=== PATIENT | female | born 1985 | race Caucasian/White ===

== ENCOUNTER 2020-11-20 11:30 | Outpatient (NON) | payer BC, SELFPAY ==
[2020-11-20 22:00] LABS: SARS-CoV-2 RNA PCR Positive
== END 2020-11-20 11:31 ==
LOC: ANHCOVIDDT 11:32
PROVIDERS: PCP Family Medicine; Visit Provider Family Medicine
DX: U07.1 COVID-19 (principal)
CPT/HCPCS: 87635; C9803; U0003

== ENCOUNTER 2022-09-23 11:26 | Outpatient (CLI) | payer BC, SELFPAY ==
[2022-09-23 12:28] LABS: Basophils Absolute Auto 0.1 K/mm3 (0.0-0.1); Basophils Percent Auto 0.9 % (0.2-1.2); Eosinophils Absolute Auto 0.2 K/mm3 (0-0.3); Eosinophils Percent Auto 3.3 % (0-4.4); Hematocrit 36.2 % (37.0-47.0); Hemoglobin 11.8 g/dL (12.0-15.0); Immature Granulocyte Absolute 0.01 K/mm3 (0.00-0.031); Immature Granulocyte Percent A 0.2 % (0-0.5); Lymphocytes Percent Auto 28.5 % (18.3-44.2); Mean Corpuscular HGB Conc 32.6 g/dl (32-36); Mean Corpuscular Hemoglobin 30.2 pg (26-34); Mean Corpuscular Volume 92.6 fl (80-100); Mean Platelet Volume 10.8 fl (7.4-10.4); Monocytes Absolute Auto 0.4 K/mm3 (0.1-0.6); Monocytes Percent Auto 6.5 % (2.6-8.5); Neutrophils Percent Auto 60.6 % (45.5-73.1); Platelet Count Result 248 k/mm3 (150-375); Red Blood Count 3.91 M/mm3 (4.2-5.4); Red Cell Distribution Width 13.9 % (11.5-14.5); White Blood Count 6.7 K/mm3 (4.5-10.0)
== END 2022-09-23 11:27 | disposition home or self-care (01) ==
LOC: ANHSURGERY 11:36
PROVIDERS: PCP Family Medicine; Visit Provider Obstetrics & Gynecology
DX: N92.6 Irregular menstruation, unspecified (principal); Z01.818 Encounter for other preprocedural examination
CPT/HCPCS: 36415; 85025; 86850; 86900; 86901

== ENCOUNTER 2022-09-27 00:20 | Day surgery (SDC) | payer BC, SELFPAY ==
[2022-09-17 14:20] VITALS: BMI 22.6
--- NOTE | 2022-09-17 14:30 | SUR.PREOP ---
Report to the Outpatient Waiting Room, entrance under the green pavilion located off [facility], at time _0930 on date _09/27/22 . Planned Procedure Time: _1130 . Time changes happen often and if your time is changed the preop area will call you the afternoon before. - You and your visitor will be asked to self-screen and do not enter if you have any COVID symptoms. - We encourage only one visitor and NO visitors under age 16 are allowed at this time. Your visitor will receive communication by the phone number that is given day of service. - The patient visitor is requested to social distance or may leave the building when not with patient due to restrictions. - A mask is required within the hospital. Patients may have clear liquids (water, carbonated beverages, clear teas, apple juice) until 3 hours prior to surgery with a maximum of 20 ounces. - No food from midnight until time of surgery - Infants may have breast milk until 4 hours before surgery, formula 6 hours prior to surgery. - Children will be allowed to drink immediately following surgery. If applicable, please bring a bottle or sippy cup to assist with drinking. Juice, water, soda, and popsicles are readily available. For infants on formula, please bring formula the day of surgery. Pacifiers are allowed. Take the following medications with a SIP of water the morning of surgery: ___n/a Medications to discontinue per physician ____n/a Date to take last dose_n/a Please no make-up, nail kyrgyz, hairspray, perfume, deodorant, or body powder the day of surgery. No jewelry (including any body piercings) or valuables the day of surgery, leave them at home. Please take a shower or bath the night before, or the morning of, surgery with an antibacterial soap. Wear comfortable, loose fitting clothing. Children are encouraged to wear pajamas. - Jewelry must be removed prior to entering the operating room. Rings and piercings that are not removed may be cut off. - The hospital will not accept responsibility for valuables. - Please leave all valuables, including medications, at home the day of surgery. If you are going home after surgery, a licensed electric screw driver operator must drive you home. - NO public transportation without another adult. - We recommend that an adult stay with you for 24 hours following discharge. - We also recommend that you do not drive, make important decision, drink alcoholic beverages, or take any drugs that were not prescribed by your health care provider for at least 24 hours after your discharge time. For Pediatric surgeries, we recommend two adults accompany the child home. Follow any additional instructions given to you from your surgeon. If you or anyone in your household have experienced Covid symptoms in the past week, please notify your surgeon or the nurse liaison at the phone number below for possible testing. Telephone instructions given to jcarlos rios____and asked if any additional questions and then verbalized understanding. Patient advised to call surgeon office or pre surgery nurse liaison [phone] if any additional questions.
--- NOTE | 2022-09-25 11:31 | PM.IMHP ---
H&P: HPI History of Present Illness Date/Time: 09/25/22 11:31 Chief Complaint: Pelvic pain and postcoital bleeding refractory to medical therapy with enlarged uterus Narrative: Is a 37-year-old multiparous patient admitted for robotic hysterectomy and bilateral salpingectomy secondary to chronic pelvic pain postcoital bleeding irregular bleeding enlarged uterus. She had pain discomfort and bleeding for quite some time. Risks and benefits reviewed including but not exclusive of , aspiration pneumonia, bleeding, transfusion, perforation of bowel, bladder, ureters, or other internal organs with need for open laparotomy. She received the ACOG handout entitled hysterectomy as well as de Dotty handout. She had all questions answered and asked to proceed PMFSH Surgical History Surgical History [place] teeth extracted Social History Social History Smoking status: Never smoker Alcohol intake: never Substance use: never Spiritual care concerns: No Has the Lack of Transportation Kept You From Medical Appointments or From Getting Medications?: No Within the Past 12 Months, Were You Worried Whether Your Food Would Run Out Before You Got Money to Buy More?: Never True What is Your Housing Situation Today?: I Have Housing Are You Worried That in the Next 2 Months, You May Not Have Your Own Housing to Live In?: No Do You Have Trouble Paying Your Heating Or Electricity Bill?: No Do You Have Trouble Paying For Medicines?: No Are You Currently Unemployed and Looking for Work?: No Highest Level of Education Completed: Bachelor's Degree Do You Have Trouble With Childcare or the Care of a Family Member?: No Meds Home Medications and Allergies Home Medications Medication Instructions Recorded Confirmed Type norgestimate-ethinyl estradiol 1 tablet PO DAILY 11/11/09/24/22 History 0.18 mg/0.215mg/0.25mg-35 mcg(28)tablet (Tri-Estarylla) Allergies Allergy/AdvReac Type Severity Reaction Status Date / Time cefaclor Allergy Mild Skin Verified 09/24/22 13:04 Reaction Penicillins Allergy Mild Skin Verified 09/24/22 13:04 Reaction PERTUSSIS IMMUNE GLOBULIN Allergy Intermediate SWELLING Uncoded 09/24/22 13:04 Exam Const: General: cooperative, healthy appearing and comfortable Nutritional Appearance: average body habitus Orientation/consciousness: oriented to person, oriented to place and oriented to time HENMT: Head: normal to inspection Chest: Chest palpation & inspection: normal inspection of the chest Resp: Effort & Inspection: normal respiratory effort Cardio: Rate: regular rate Rhythm: regular rhythm Heart sounds: S1 normal heart sound present and S2 normal heart sound present GI: Inspection: normal to inspection Auscultation: normal bowel sounds : Speculum Exam - Vagina: normal appearance of the vagina and vaginal bleeding Speculum Exam - Cervix: normal appearance of the cervix Bimanual exam- vagina & uterus: enlarged Bimanual Exam- Adnexa, other: normal adnexae Assessment and Plan Assessment and plan (1) Enlarged uterus: Code(s): N85.2 - Hypertrophy of uterus Status: Acute (2) Postcoital bleeding: Code(s): N93.0 - Postcoital and contact bleeding Status: Acute (3) Pelvic pain: Code(s): R10.2 - Pelvic and perineal pain Status: Acute Plan Robotic total vaginal hysterectomy bilateral salpingectomy
--- NOTE | 2022-09-26 14:46 | WPDANESEPPF ---
Anes - Initial Pre Proc Eval Procedure: Operation Date: 09/27/22 11:30 Proposed Procedures p Robotic Assisted Total Vaginal Hysterectomy, Bilateral Salpingectomy - Deven Larose MD Date/Time: 09/26/22 14:46 Surgeon: Deven Larose MD Pre Op Diagnosis: pelvic pain, irreg bleeding, post coital bleed, Patient Data Age: 37 Gender: F Height: 1.68 m Weight: 63.63 kg Allergies Allergy/AdvReac Type Severity Reaction Status Date / Time cefaclor Allergy Mild Skin Verified 09/27/22 09:29 Reaction Penicillins Allergy Mild Skin Verified 09/27/22 09:29 Reaction PERTUSSIS IMMUNE GLOBULIN Allergy Intermediate SWELLING Uncoded 09/27/22 09:29 Home Medications Medication Instructions Recorded Confirmed Type norgestimate-ethinyl estradiol 1 tablet PO DAILY 11/11/19 09/27/22 History 0.18 mg/0.215mg/0.25mg-35 mcg(28)tablet (Tri-Estarylla) hydrocodone 5 mg-acetaminophen 325 1 tablet PO Q4H PRN pain #30 tabs 09/27/22 Rx mg tablet Patient hx anesthesia problems: none Family hx anesthesia problems: none Results Review: All pre-operative results and documents have been reviewed as part of the pre-operative evaluation. [facility] Past Medical History Medical History (Updated 09/26/22 @ 14:47 by Maxim Zhao MD) Enlarged uterus Pelvic pain Surgical History Surgical History [place] teeth extracted Social History Social History Smoking status: Never smoker Alcohol intake: never Substance use: never Has the Lack of Transportation Kept You From Medical Appointments or From Getting Medications?: No Within the Past 12 Months, Were You Worried Whether Your Food Would Run Out Before You Got Money to Buy More?: Never True What is Your Housing Situation Today?: I Have Housing Are You Worried That in the Next 2 Months, You May Not Have Your Own Housing to Live In?: No Do You Have Trouble Paying Your Heating Or Electricity Bill?: No Do You Have Trouble Paying For Medicines?: No Are You Currently Unemployed and Looking for Work?: No Highest Level of Education Completed: Bachelor's Degree Do You Have Trouble With Childcare or the Care of a Family Member?: No Living arrangements: with family Spiritual care concerns: No Anes - Eval Final PreProcedure Day of Procedure 09/26/22 14:46 Patient weight: normal Heart: regular rate and rhythm Lungs: clear to auscultation and normal air movement Airway: Mallampati scale class II Neurological: alert and oriented Last oral intake: >/= 8 hours ASA classification: II Emergent: no Anesthetic plan: proceed Anesthesia type and monitoring: general ETT Results Review: All pre-operative results and documents have been reviewed as part of the pre-operative evaluation. Informed Consent: The patient's anesthetic plan and its attendant risks and benefits were discussed with the patient/family/POA. Questions were solicited and answers provided to the satisfaction of the patient/family/POA.
[2022-09-27] VITALS (12 sets, daily range): BP systolic 97–126; BP diastolic 62–73; PULSE 65–98; RESP 10–20; TEMP 36.2–36.9; O2SAT 98–100
--- NOTE | 2022-09-27 06:16 | WPDHPUPDATE1 ---
History and Physical Update Update Date/Time: 09/27/22 06:16 History and Physical has been reviewed, including an updated exam of the patient. There are NO changes in the patient's condition. Risks, benefits, and alternatives have been discussed and questions answered. Patient agrees to proceed with procedure.
[2022-09-27] MEDS: ACETAMINOPHEN 500 MG TABLET 1000 MG PO (09:38)
[2022-09-27] MEDS: LACTATED RINGERS 1,000 ML 30 ML IV CONT ×2 (10:05→11:53)
[2022-09-27] MEDS: KETOROLAC 15 MG/ML VIAL (*BKC) IV PUSH (10:07)
[2022-09-27] MEDS: SCOPOLAMINE 1.5 MG PATCH TRANSDERM (10:24)
[2022-09-27] MEDS: ceFAZolin 2 GM/D5W 50 ML 2 GM/50 ML BAG IVPB (10:36)
--- NOTE | 2022-09-27 11:49 | W.PM.PROC2 ---
Procedure Note - Detailed Date of Procedure 09/27/22 Pre-op Diagnosis pelvic pain, irreg bleeding, post coital bleed, Post-op Diagnosis Same Procedure Performed Robotic total vaginal hysterectomy and bilateral salpingectomies Surgeon Deven Larose MD Anesthesia General Indications 37-year-old female with bleeding pain Findings enlarged uterus. Normal-appearing tubes and ovaries Description of Procedure patient was prepped draped in normal sterile fashion placed in dorsal lithotomy position. Under excellent general trach anesthesia weighted speculum was placed in posterior fornix vagina. Anterior lip of the cervix grasped with single-tooth tenaculum and the uterus sounded to 10cm. Serial dilatation with fragmented dilators performed followed by passage of the 10. FILI and the 3. Cold cup. Sixteen [place] catheter was placed in the bladder. The weighted speculum was removed. The gloves were changed A supraumbilical incision made. Veress needle passed in the abdomen. Abdomen filled with CO2 gas [id number]. The 8mm trocar advanced in the abdomen and the downside visualized with no injury seen. Patient placed in Trendelenburg and right left and right lateral quadrant incisions made and 8mm trocars advanced under direct visualization. Right upper quadrant incision made the 10mm trocar advanced under direct visualization assuring. The robot was docked. Attention was turned to the correctional counselor. The left round ligament was grasped, burned, cut. Anteriorly a bladder flap was formed by sharply dissecting the peritoneum and dissecting this 2 and pushed the bladder caudally away from the cervix and uterus to the opposite round ligament which was clamped, burned, cut. Next left fallopian tube was sharply dissected off the ovarian complex and left attached to the uterine origin. The right fallopian tube was removed dissected away from the right ovary and left attached to the uterine origin. Next the left utero-ovarian ligament was skeletonized to conserve the left ovary this was clamped, burned, cut and brought to the level of previously cut round ligament. In like fashion the the utero-ovarian ligament on the right was skeletonized to conserve the right ovary. This was clamped, burned, cut and brought to level of the previously cut round ligament. The cardinal broad ligaments on the left were then serially skeletonized clamping burning cutting and hugging the cervix and uterus and to the uterine vessels could be seen the left. These were large and tortuous and individually clamped, burned, cut. The cardinal broad ligaments on the right were serially skeletonized clamping burning cutting and hugging the cervix and uterus until the uterine vessels could be seen on the right. These were individually clamped, burned, cut. At that point blanching of the uterus was noted. A colpotomy incision made cervix uterus and tubes removed through the vagina. The vagina was then closed with continuous running 0V lock from lateral edge to lateral edge back to the midline. Irrigation undertaken until clear with excellent hemostasis. The raw areas were sprinkled with [place] term. The robot was undocked. The gas removed from the abdomen and the trocars withdrawn. The incisions closed with 4-0 Monocryl and glue. The instruments were then removed from the vagina. The patient was awakened and went to recovery in satisfactory condition. All sponge, needle, instrument counts were correct. There were no immediate complications noted Estimated Blood Loss 25 Drains No Packing No Pathology Yes Complications No immediate complications Condition Stable Disposition PACU
[2022-09-27] MEDS: fentaNYL CITRATE INJ (*CRX) 100 MCG/2 ML VIAL 25 MCG IV PUSH ×4 (12:54→13:04)
--- NOTE | 2022-09-27 13:27 | ADMGEN ---
This patient, Shayy Perez, was admitted to OB 2nd Floor Room 287-00. Patient/family oriented to hospital policies and general routines including ID bracelet, bed and alarms, visiting hours, pain management, procedures, bathroom and other care routines, personal items, smoking policy, room service/diet, and visiting hours. Information on how to activate the Rapid Response Team has been discussed. Patient/Family are encouraged to report perceived risks to care and to ask questions if they do not understand what they are told or what they should do.
[2022-09-27] MEDS: DEXTROSE 5%/LACTATED RINGERS 1,000 ML 125 ML IV CONT (13:50)
[2022-09-27] MEDS: KETOROLAC 30 MG/ML VIAL (*BKC) IV PUSH (15:37)
[2022-09-27] MEDS: HYDROcodone/acetaminophen (*CRX) 5-325 MG TABLET 1 TAB PO (17:00)
[2022-09-27] MEDS: DOCUSATE SODIUM 100 MG CAPSULE PO (17:00)
[2022-09-28] MEDS: HYDROcodone/acetaminophen (*CRX) 5-325 MG TABLET 1 TAB PO ×3 (01:02→10:49)
[2022-09-28] MEDS: IBUPROFEN 600 MG TABLET PO ×2 (01:02→07:15)
[2022-09-28 04:45] VITALS: BP 116/62; PULSE 71; RESP 16; TEMP 36.4
[2022-09-28 05:30] LABS: Basophils Percent Auto 0.2 % (0.2-1.2); Eosinophils Percent Auto 0.1 % (0-4.4); Hematocrit 31.4 % (37.0-47.0); Hemoglobin 10.4 g/dL (12.0-15.0); Immature Granulocyte Absolute 0.05 K/mm3 (0.00-0.031); Immature Granulocyte Percent A 0.3 % (0-0.5); Lymphocytes Absolute Auto 1.52 K/mm3 (0.9-3.2); Lymphocytes Percent Auto 10.4 % (18.3-44.2); Mean Corpuscular HGB Conc 33.1 g/dl (32-36); Mean Corpuscular Hemoglobin 30.8 pg (26-34); Mean Corpuscular Volume 92.9 fl (80-100); Mean Platelet Volume 11.3 fl (7.4-10.4); Monocytes Absolute Auto 0.9 K/mm3 (0.1-0.6); Monocytes Percent Auto 6.2 % (2.6-8.5); Neutrophils Absolute Auto 12.1 K/mm3 (1.3-6.7); Neutrophils Percent Auto 82.8 % (45.5-73.1); Platelet Count Result 186 k/mm3 (150-375); Red Blood Count 3.38 M/mm3 (4.2-5.4); Red Cell Distribution Width 13.8 % (11.5-14.5); White Blood Count 14.6 K/mm3 (4.5-10.0)
--- NOTE | 2022-09-28 06:24 | P.DS_ITS ---
DS: Admitting Diagnosis Discharge Date 09/28/2022 Admitting Diagnosis recurrent high-grade dysplasia and bleeding DS: Discharge Diagnosis Discharge Diagnosis (1) Pelvic pain: Code(s): R10.2 - Pelvic and perineal pain Status: Acute (2) Enlarged uterus: Code(s): N85.2 - Hypertrophy of uterus Status: Acute (3) Postcoital bleeding: Code(s): N93.0 - Postcoital and contact bleeding Status: Acute DS: Summary Hospital Course Reason for hospitalization: patient was admitted for robotic hysterectomy bilateral salpingectomy Hospital Course: patient underwent a robotic total vaginal hysterectomy and bilateral salpingectomies. Her hospital course unremarkable. She remained afebrile. She was up, ambulating, voiding without difficulty, eating regular diet. She was without complaints routine discharge instructions were given Time Spent with Patient Time attestation: Total time spent providing and/or coordinating discharge services: DS: Data Data Completed and Pending Pending studies at discharge: Pending at discharge 09/27/22 11:00 Surgical [PTH] Routine Labs on day of discharge: Labs from last 24 hours 09/28/22 04:46 WBC 14.6 H RBC 3.38 L Hgb 10.4 L Hct 31.4 L MCV 92.9 MCH 30.8 MCHC 33.1 RDW 13.8 Plt Count 186 MPV 11.3 H Immature Gran % (Auto) 0.3 Neut % (Auto) 82.8 H Lymph % (Auto) 10.4 L [place] % (Auto) 6.2 Eos % (Auto) 0.1 Baso % (Auto) 0.2 Lymph # (Auto) 1.52 [place] # (Auto) 0.9 H Eos # (Auto) 0.0 Baso # (Auto) 0.0 Abs Immat Gran (auto) 0.05 H Absolute Neuts (auto) 12.1 H Absolute Nucleated RBC 0.0 Nucleated RBC % 0.0 Discharge Plan Discharge Patient Disposition: Home, Self-Care Discharge Instructions: Remove the Scopolamine patch that was placed behind your ear in 72 hours or less. Wash your hands after touching. Stand Alone Forms: General Discharge Instructions Follow-up/Referrals: Deven Cordero MD [Physician] - Discharge Medications: New hydrocodone-acetaminophen 5-325 mg tablet 1 tablet PO Q4H PRN (Reason: pain) Qty: 30 0RF Continued norgestimate-ethinyl estradiol [Tri-Estarylla] 0.18/0.215/0.25 mg-35 mcg (28) tablet 1 tablet PO DAILY
--- NOTE | 2022-09-28 06:27 | PM.GYNPNOP ---
PRINTED CIRCUIT BOARD PANELS PLATER - A/P Postoperative Procedures: Procedures Operation Date: 09/27/22 11:30 Actual Procedure Side Surgeon p Robotic Assisted Total Vaginal Hysterectomy, Bilateral Salpingectomy Bilateral Deven Larose MD Postoperative day: 1 Postoperative status: doing well Postoperative plan: routine post-op care, advance diet and discharge Time Spent With Patient Time: Total time spent is greater than 50% in coordination of care (as documented) at patient's floor/unit and/or counseling patient: Time with patient: less than 15 minutes PRINTED CIRCUIT [employer]ARD PANELS PLATER- PN:Subj Post-Op Subjective Date/time seen: 09/28/22 06:27 Subjective: patient has no complaints, patient desires discharge, pain is well controlled and patient is tolerating oral intake Exam Const: General: cooperative, healthy appearing, comfortable and well groomed Nutritional Appearance: average body habitus Orientation/consciousness: oriented to person, oriented to place and oriented to time HENMT: Head: normal to inspection Resp: Effort & Inspection: normal respiratory effort GI: Inspection: normal to inspection and incision ( once were clean dry and intact) PRINTED CIRCUIT BOARD PANELS PLATER - PN: Obj Data Vital Signs Vital Signs: Vital Signs - 24 hr 09/27/22 09:30 09/27/22 11:53 09/27/22 12:05 Temperature 97.6 F 97.1 F L Pulse Rate 82 84 84 Respiratory Rate 20 10 L 12 Blood Pressure 101/72 97/62 L 112/65 Pulse Oximetry 100 100 100 Oxygen Delivery Room Air Simple Face Mask Simple Face Mask Oxygen Flow Rate 6 6 09/27/22 12:12 09/27/22 12:20 09/27/22 12:35 Temperature Pulse Rate 76 65 Respiratory Rate 10 L 16 Blood Pressure 110/71 115/72 Pulse Oximetry 100 100 100 Oxygen Delivery Room Air Room Air Room Air Oxygen Flow Rate 09/27/22 12:55 09/27/22 13:10 09/27/22 13:20 Temperature Pulse Rate 73 69 98 Respiratory Rate 14 14 16 Blood Pressure 126/73 112/65 112/65 Pulse Oximetry 98 98 100 Oxygen Delivery Room Air Room Air Room Air Oxygen Flow Rate 09/27/22 13:40 09/27/22 13:55 09/27/22 17:00 Temperature 97.6 F 98.5 F Pulse Rate 67 79 Respiratory Rate 16 16 Blood Pressure 118/72 100/71 Pulse Oximetry 98 100 Oxygen Delivery Room Air Oxygen Flow Rate 09/27/22 17:00 09/27/22 19:00 09/28/22 04:45 Temperature 97.4 F L 97.6 F Pulse Rate 68 71 Respiratory Rate 16 16 Blood Pressure 119/67 116/62 Pulse Oximetry Oxygen Delivery Room Air Oxygen Flow Rate Intake/Output Intake/Output: Intake & Output 09/25/22 09/26/22 09/27/22 09/28/22 23:59 23:59 23:59 23:59 Intake Total 1450 Output Total 2610 Balance -1160 Meds/Results Medications: Active Medications Generic Name Dose Route Start Last Admin Trade Name Freq PRN Reason Stop Dose Admin Hydrocodone Bitart/Acetaminophen 1 tab 09/27/22 13:23 09/28/22 01:02 Hydrocodone/Acetaminophen (*Crx) 5-325 Mg Tablet PO 1 tab Q3H PRN Administration Pain Rated 5 or Less Hydrocodone Bitart/Acetaminophen 1 tab 09/27/22 13:23 Hydrocodone/Acetaminophen (*Crx) 10-325 Mg Tablet PO Q3H PRN Pain Rated 6 or Greater Docusate Sodium 100 mg 09/27/22 17:00 09/27/22 17:00 Docusate Sodium 100 Mg Capsule PO 100 mg BID KEENAN Administration Enoxaparin Sodium 40 mg 09/28/22 09:00 Enoxaparin 40 Mg/0.4 Ml Syringe SUB-Q DAILY KEENAN Ibuprofen 600 mg 09/27/22 13:23 09/28/22 01:02 Ibuprofen 600 Mg Tablet PO 600 mg Q6H PRN Administration Cramping Ketorolac Tromethamine 30 mg 09/27/22 13:23 09/27/22 15:37 Ketorolac 30 Mg/Ml Vial (*Bkc) IV PUSH 10/02/22 13:22 30 mg Q6H PRN Administration Pain Rated 4-6 Naloxone HCl 0.1 mg 09/27/22 13:23 Naloxone Hcl 0.4 Mg/Ml Vial IV PUSH Q2M PRN Respiratory rate less than 10 Ondansetron HCl 4 mg 09/27/22 13:23 Ondansetron Inj 4 Mg/2 Ml Vial IV PUSH Q6H PRN Nausea And Vomiting Simethicone 80 mg 09/27/22 13:23 Simethicone 80 Mg Tab.Chew PO Q2H
[2022-09-28 07:15] VITALS: BP 105/62; PULSE 64; RESP 16; TEMP 37; O2SAT 98
[2022-09-28] MEDS: ENOXAPARIN 40 MG/0.4 ML SYRINGE SUB-Q (09:07)
[2022-09-28] MEDS: DOCUSATE SODIUM 100 MG CAPSULE PO (09:07)
== END 2022-09-28 10:52 | disposition home or self-care (01) ==
LOC: ANHSURGERY 10:21 → ANHOB2 13:24
PROVIDERS: PCP Family Medicine; Visit Provider Obstetrics & Gynecology
PROC: (CPT 58552; principal; 2022-09-27 11:30)
DX: N93.9 Abnormal uterine and vaginal bleeding, unspecified (principal); R10.2 Pelvic and perineal pain; N93.0 Postcoital and contact bleeding; N72 Inflammatory disease of cervix uteri; N85.2 Hypertrophy of uterus
CPT/HCPCS: 58552; S2900; 36415; 85025; 88307; 99199; A9270; J0690; J1100; J1650; J1885; J2250; J2405; J2704; J2710; J3010; J7030; J7120; J7121

== ENCOUNTER 2022-11-08 08:43 | Outpatient (CLI) | payer BC, SELFPAY ==
[2022-11-08 19:36] LABS: Alanine Aminotransferase 19 U/L (6-35); Albumin Level 4.4 g/dL (3.5-5.1); Alkaline Phosphatase 54 U/L (38-126); Anion Gap 7 mmol/L (8-16); Aspartate Amino Transferase 27 U/L (14-36); Bilirubin,Total 1.2 mg/dL (0.2-1.3); Blood Urea Nitrogen 14 mg/dL (7-17); Calcium 8.6 mg/dL (8.4-10.2); Carbon Dioxide 28 mmol/L (22-30); Chloride 102 mmol/L (98-107); Cholesterol 182 mg/dL (0-200); Estimated Glomerular Filt Rate > 60; Glucose 90 mg/dL (65-110); HDL Direct 57 mg/dL; Potassium 4.3 mmol/L (3.4-5.0); Sodium 137 mmol/L (137-145); Triglycerides 72 mg/dL (<150)
[2022-11-08 19:47] LABS: LDL Cholesterol Direct 92 mg/dL
== END 2022-11-08 08:44 | disposition home or self-care (01) ==
LOC: ANHGOSHLAB 08:45
PROVIDERS: PCP Family Medicine; Visit Provider Family Medicine
DX: Z00.00 Encounter for general adult medical examination without abnormal findings (principal); Z13.220 Encounter for screening for lipoid disorders; Z79.899 Other long term (current) drug therapy
CPT/HCPCS: 36415; 80053; 80061; 84443

== ENCOUNTER 2023-09-07 10:24 | Emergency (ER) | payer BC, SELFPAY ==
--- NOTE | ~2023-09-07 | XR_ITS ---
XR ankle RT min 3V DATE: 09/07/2023 10:45 INDICATION: Right ankle pain and swelling after running yesterday TECHNIQUE: 4 views of right ankle COMPARISON: None FINDINGS: Mild lateral soft tissue swelling. No fracture or dislocation of the ankle or disruption of the ankle mortise. No periosteal reaction or bone destruction is detected. IMPRESSION: Mild lateral soft tissue swelling; no fracture or dislocation Reviewed, dictated and finalized at location A.
[2023-09-07 10:28] VITALS: BP 126/81; PULSE 84; RESP 16; TEMP 36.6; O2SAT 100
--- NOTE | 2023-09-07 11:49 | ED.GENADULT ---
HPI - General Adult General Chief complaint: Extremity Injury, Lower Stated complaint: Right ankle pain Time Seen by Provider: 09/07/23 10:53 History of Present Illness HPI narrative: Shayy Perez is a 38 y/o female who present today with reports of noticing some pain to her right lateral lower leg when she was walking yesterday before her run, she then proceeded to run and felt that it was ok. Later last night she started to have more pain to her ankle worse with ambulation, although she can stand on her foot without pain as long as she does not move. She denies any known trauma, reports she might of sprained it years ago but not recently. Related Data Home Medications Medication Instructions Recorded Confirmed No Home Medications 09/03/23 09/03/23 Allergies Allergy/AdvReac Type Severity Reaction Status Date / Time cefaclor Allergy Mild Skin Verified 09/03/23 14:39 Reaction Penicillins Allergy Mild Skin Verified 09/03/23 14:39 Reaction PERTUSSIS IMMUNE GLOBULIN Allergy Intermediate SWELLING Uncoded 09/03/23 14:39 Review of Systems Review of Systems: CONSTITUTIONAL: Denies fever, chills, or sweats. EYES: Denies visual changes, redness, or discharge. ENT: Denies rhinorrhea, congestion, sore throat, or otalgia. CARDIOVASCULAR: Denies chest pain, palpitations, or edema. RESPIRATORY: Denies cough or dyspnea. GASTROINTESTINAL: Denies abdominal pain, nausea, vomiting, or diarrhea. GENITOURINARY: Denies dysuria or hematuria. SKIN: Denies rash or itching. MUSCULOSKELETAL: Denies back pain, complains of pain to lateral aspect of the right ankle denies myalgia. NEUROLOGIC: Denies headache, numbness, dizziness, or weakness. PSYCHIATRIC: Denies anxiety or depression. [facility] Past Medical History Medical History Enlarged uterus Pelvic pain Surgical History Surgical History H/O: hysterectomy [place] teeth extracted Social History Social History Smoking status: Never smoker Alcohol intake: never Substance use: never Lack of Transportation: No Lack of Food: Never True Current Housing: I Have Housing Concerned About Future Housing: No Difficulty Paying Gas/Electric Bills: No Difficulty Paying for Meds: No Currently Unemployed: No Education: Bachelor's Degree Difficulty w/ Childcare or Family Care: No Living arrangements: with family Spiritual care concerns: No Exam Narrative: GENERAL: Well-appearing, well-nourished, and in no acute distress. HEAD: Normocephalic, atraumatic. EYES: PERRLA and EOMI. ENT: Nares clear, no rhinorrhea or epistaxis. Mucous membranes moist. Oropharynx without tonsillar hypertrophy exudate or other lesions. NECK: Supple. No adenopathy or masses. No carotid bruits or JVD CHEST: Clear to auscultation. No respiratory distress. No wheezes rales or rhonchi HEART: Regular rate and rhythm. No murmur heard. Normal peripheral pulses. ABDOMEN: Soft, nontender, nondistended, normal active bowel sounds. EXTREMITIES: Normal range of motion. Pain reproducible with palpation to right ankle, slight swelling noted to ankle SKIN: Warm, dry, no rash. NEURO: No focal deficits. Alert and oriented x3. PSYCH: Normal mood and affect. Course Vital Signs Vital signs: Vital Signs Temperature 36.6 C 09/07/23 10:28 Pulse Rate 84 09/07/23 10:28 Respiratory Rate 16 09/07/23 10:28 Blood Pressure 126/81 09/07/23 10:28 Pulse Oximetry 100 09/07/23 10:28 Oxygen Delivery Room Air 09/07/23 10:28 Temperature 36.6 C 09/07/23 10:28 Pulse Rate 73 09/07/23 12:32 Respiratory Rate 16 09/07/23 12:32 Blood Pressure 122/79 09/07/23 12:32 Pulse Oximetry 100 09/07/23 12:32 Oxygen Delivery Room Air 09/07/23 10:28 Medical Decision Making MDM Narrative Medical decision making
[2023-09-07 12:32] VITALS: BP 122/79; PULSE 73; RESP 16; O2SAT 100
== END 2023-09-07 12:46 | disposition home or self-care (01) ==
PROVIDERS: Emergency Provider Nurse Practitioner Family; PCP Family Medicine
DX: S93.401A Sprain of unspecified ligament of right ankle, initial encounter (principal); Z90.710 Acquired absence of both cervix and uterus; X58.XXXA Exposure to other specified factors, initial encounter; Y93.02 Activity, running
CPT/HCPCS: 73610; 99283

== ENCOUNTER → 2023-09-26 14:12 | Outpatient (CLI) | payer BC, SELFPAY ==
--- NOTE | ~2023-09-26 | US_ITS ---
EXAMINATION:US venous doppler LE RT INDICATION:Right leg and ankle swelling TECHNIQUE: Multiple grayscale, color flow and Doppler images of the right lower extremity deep venous systems were obtained and reviewed. COMPARISON:No prior studies for comparison. FINDINGS: The common femoral, superficial femoral and popliteal veins demonstrate normal respiratory variation, augmentation and compressibility. Color flow is also seen within the posterior tibial, pe roneal, greater saphenous and profunda veins. IMPRESSION: 1: No lower extremity deep venous thrombosis. Reviewed, dictated and finalized at location B.
== END ==
PROVIDERS: PCP Family Medicine; Visit Provider Family Medicine
DX: M25.471 Effusion, right ankle (principal); M79.89 Other specified soft tissue disorders
CPT/HCPCS: 93971

== ENCOUNTER 2023-10-31 15:51 | Outpatient (CLI) | payer BC, SELFPAY ==
--- NOTE | ~2023-10-31 | MR_ITS ---
EXAMINATION: MR ankle RT wo con, MR foot RT wo con DATE: 10/31/2023 16:50 INDICATION: Ankle swelling TECHNIQUE: 1. Magnetic resonance imaging (MRI) of the right ankle/hindfoot was performed without intravenous con trast. Sequences included sagittal, coronal, and axial PD-weighted FSE and PD-weighted FS FSE. 2. MRI of the right fore/mid foot was performed without intravenous contrast. Sequences included sagi ttal T1-weighted FSE, sagittal fluid sensitive FSE STIR, coronal PD-weighted FS FSE, coronal T1-weigh maxwell FSE, axial PD-weighted FS FSE, and axial PD-weighted FSE. COMPARISON: None. FINDINGS: Medial ankle ligaments: Deep and superficial deltoid ligaments as well as the spring ligament are normal. Lateral ankle ligaments: The anterior and posterior inferior tibiofibular, anterior and posterior talofibular as well as the c alcaneofibular ligaments are normal. Tendons: Achilles, medial and lateral flexor as well as the extensor tendons of the foot/ankle are normal. Plantar fascia: Plantar aponeurosis is normal. Bones/other: There is marrow edema surrounding a nondisplaced transverse fracture across the metaphyseal region of the distal right fibula located approximately 1 cm above level of the tibiotalar joint line. No othe r fractures identified. There is an intra-articular ganglion cyst at the medial head of the first met atarsal arising at or near the footplate of the medial collateral ligament complex. 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 Fluid: Physiologic amount of fluid in the joint space. There is soft tissue edema surrounding the distal fib patricia. No other abnormal fluid collections. IMPRESSION: 1. Nondisplaced distal metaphyseal fracture of the right fibula. Reviewed, dictated and finalized at location A. URCE COORDINATOR IMPRESSION: 1. Nondisplaced distal metaphyseal fracture of the right fibula.
== END 2023-10-31 15:52 | disposition home or self-care (01) ==
PROVIDERS: PCP Family Medicine; Visit Provider Family Medicine
DX: M79.89 Other specified soft tissue disorders (principal); M25.471 Effusion, right ankle; S89.391A Other physeal fracture of lower end of right fibula, initial encounter for closed fracture; X58.XXXA Exposure to other specified factors, initial encounter
CPT/HCPCS: 73718; 73721

== ENCOUNTER 2023-11-04 12:18 | Outpatient (CLI) | payer BC, SELFPAY ==
[2023-11-04 13:10] LABS: Basophils Absolute Auto 0.1 K/mm3 (0.0-0.1); Basophils Percent Auto 0.9 % (0.2-1.2); Eosinophils Absolute Auto 0.2 K/mm3 (0-0.3); Eosinophils Percent Auto 2.6 % (0-4.4); Hematocrit 41.3 % (37.0-47.0); Hemoglobin 13.5 g/dL (12.0-15.0); Immature Granulocyte Absolute 0.01 K/mm3 (0.00-0.031); Immature Granulocyte Percent A 0.2 % (0-0.5); Lymphocytes Absolute Auto 1.85 K/mm3 (0.9-3.2); Lymphocytes Percent Auto 28.2 % (18.3-44.2); Mean Corpuscular HGB Conc 32.7 g/dl (32-36); Mean Corpuscular Hemoglobin 30.8 pg (26-34); Mean Corpuscular Volume 94.1 fl (80-100); Mean Platelet Volume 10.6 fl (7.4-10.4); Monocytes Absolute Auto 0.5 K/mm3 (0.1-0.6); Monocytes Percent Auto 7.5 % (2.6-8.5); Neutrophils Percent Auto 60.6 % (45.5-73.1); Platelet Count Result 249 k/mm3 (150-375); Red Blood Count 4.39 M/mm3 (4.2-5.4); Red Cell Distribution Width 12.2 % (11.5-14.5); White Blood Count 6.6 K/mm3 (4.5-10.0)
[2023-11-04 13:35] LABS: Alanine Aminotransferase 19 U/L (6-35); Albumin Level 4.7 g/dL (3.5-5.1); Alkaline Phosphatase 67 U/L (38-126); Anion Gap 11 mmol/L (8-16); Aspartate Amino Transferase 23 U/L (14-36); Bilirubin,Total 2.1 mg/dL (0.2-1.3); Blood Urea Nitrogen 11 mg/dL (7-17); Carbon Dioxide 26 mmol/L (22-30); Chloride 102 mmol/L (98-107); Estimated Glomerular Filt Rate > 60; Glucose 99 mg/dL (65-110); Potassium 4.7 mmol/L (3.4-5.0); Sodium 139 mmol/L (137-145)
[2023-11-04 13:45] LABS: Vitamin D 25 Hydroxy 22.6 ng/mL
[2023-11-12 20:26] LABS: Estrogen 401 pg/mL
== END 2023-11-04 12:19 | disposition home or self-care (01) ==
LOC: ANHLAB 12:19
PROVIDERS: PCP Family Medicine; Visit Provider Orthopaedic Surgery
DX: M84.371A Stress fracture, right ankle, initial encounter for fracture (principal); E55.9 Vitamin D deficiency, unspecified
CPT/HCPCS: 36415; 80053; 82306; 82672; 84443; 85025

== ENCOUNTER 2024-06-16 08:16 | Outpatient (CLI) | payer BC, SELFPAY ==
[2024-06-16 13:07] LABS: Hematocrit 39.8 % (37.0-47.0); Hemoglobin 13.1 g/dL (12.0-15.0); Mean Corpuscular HGB Conc 32.9 g/dl (32-36); Mean Corpuscular Hemoglobin 32.1 pg (26-34); Mean Corpuscular Volume 97.5 fl (80-100); Mean Platelet Volume 11.3 fl (7.4-10.4); Platelet Count Result 193 k/mm3 (150-375); Red Blood Count 4.08 M/mm3 (4.2-5.4); Red Cell Distribution Width 11.8 % (11.5-14.5); White Blood Count 5.1 K/mm3 (4.5-10.0)
[2024-06-16 13:21] LABS: Alanine Aminotransferase 13 U/L (6-35); Albumin Level 4.4 g/dL (3.5-5.1); Alkaline Phosphatase 56 U/L (38-126); Anion Gap 9 mmol/L (4-12); Aspartate Amino Transferase 32 U/L (14-36); Bilirubin,Total 1.6 mg/dL (0.2-1.3); Blood Urea Nitrogen 14 mg/dL (7-17); Calcium 8.7 mg/dL (8.4-10.2); Carbon Dioxide 28 mmol/L (22-30); Chloride 102 mmol/L (98-107); Cholesterol 137 mg/dL (0-200); Estimated Glomerular Filt Rate > 60; Glucose 82 mg/dL (65-110); HDL Direct 52 mg/dL; Sodium 139 mmol/L (137-145); Triglycerides 69 mg/dL (<150)
[2024-06-16 13:33] LABS: LDL Cholesterol Direct 74 mg/dL
[2024-06-19 11:54] LABS: Vitamin D 1,25 (OH)2 Total 39 pg/mL (18-72); Vitamin D2 1,25 (OH)2 13 pg/mL; Vitamin D3 1,25 (OH)2 26 pg/mL
== END 2024-06-16 08:17 | disposition home or self-care (01) ==
LOC: ANHGOSHLAB 08:17
PROVIDERS: PCP Family Medicine; Visit Provider Family Medicine
DX: Z00.00 Encounter for general adult medical examination without abnormal findings (principal); Z13.220 Encounter for screening for lipoid disorders; Z79.899 Other long term (current) drug therapy; E55.9 Vitamin D deficiency, unspecified
CPT/HCPCS: 36415; 80053; 80061; 82652; 84443; 85027

== ENCOUNTER 2025-08-09 08:37 | Outpatient (CLI) | payer BC, SELFPAY ==
--- OUTSIDE RECORDS SUMMARY | 2025-08-09 09:06 | XMS_ITS | Clinical Summary ---
Author Organization [facility] at the [facility] Address [address] [place] [address] Care Team Providers Care Social Organization Professor Name Role Phone Avinash Cruz MD Primary Care Provider Avinash Cruz MD Unavailable Allergies Active Allergy Reactions Criticality Noted Date Comments Cefaclor Unknown 2021 Penicillins Unknown 2021 Pertussis Vaccine,Fluid Unknown 2021 Medications No known medications Active Problems No known active problems Immunizations Immunization Administration Dates Next Due Influenza, Quadrivalent, Emma l Culture-based MDCK, Preservative Free, Antibiotic Free, Intramuscular 09/02/2020 Rho (D) Immune Globulin, IV or IM 01/24/2017,07/2016 Surgical History Surgery Date Site/Laterality Comments WISDOM TOOTH EXTRACTION CAUTERIZE INNER NOSE Medical History Medical History Date Comments Varicose veins of leg with swelling, right Family History Medical History Relation Name Comments Immunodeficiency Sister Relation Name Status Comments Father Alive Mother Alive Sister Alive Social History Tobacco Use Types Packs/Day Years Used Date Smoking Tobacco: Never Smokeless Tobacco: Never Personal Safety Answer Date Recorded Getting School Help Needed Not on file 02/14 Comments Unknown Sex and Gender Information Value Date Recorded Sex Assigned at Not on file Legal Sex Female 9:12 AM [employer] Gender Identity Not on file Sexual Orientation Not on file Obstetrics History Last Filed Vital Signs Vital Sign Reading Time Taken Comments Blood Pressure 131/88 2021 8:30 AM [employer] Pulse 102 2021 8:30 AM [employer] Temperature - - Respiratory Rate - - Oxygen Saturation - - Inhaled Oxygen Concentration - - Weight 63.5 kg (140 lb) 2021 8:30 AM [employer] Height 167.6 cm (5' 6) 2021 8:30 AM [employer] Body Mass Index 22.6 2021 8:30 AM [employer] Plan of Treatment Not on file Insurance [employer] [place] Care Teams Social Organization Professor Relationship Specialty Start Date End Date Avinash Cruz MD [address] [place] [address] PCP - General 01/18/21 Avinash Cruz MD [address] [place] [address] Family Medicine 01/18/21
--- OUTSIDE RECORDS SUMMARY | 2025-08-09 09:07 | XMS_ITS | Patient Health Record ---
Author Organization [facility] Address [address] [place] [address] Care Team Providers Care Packing And Final Assembly Supervisor Name Role Phone Raúl Cruz M.D.h Primary Care Provider Yomaira Mccord Unavailable [phone] Allergies Allergen (clinical drug ingredient) Drug/Non Drug Allergy documented on EMR Reaction Allergy Type Onset Date Status cefaclor ceclor (uncoded) Unknown Allergy Act mary penicillin (uncoded) Unknown Allergy Active Vaccine product containing Bordetella pertussis antigen (medicinal product) pertussis (uncoded) Unknown Allergy A ctive Reason For Referral No Information Medications Medication SIG (Take, Route, Frequency, Duration) Notes Start Date End Date Status Estarylla Active Social History Tobacco Use: Social History Observation Description Date Details (start date - stop date) Never Smoker NA - NA Tobacco Use/Smoking Question Answer Notes Are you a nonsmoker Plan Of Treatment No Information Insurance Providers Payer Name Payer Address Payer Phone Subscriber Number Group Number Insured Name Patient Relationship to Insured Coverage Start Date Coverage End Date [facility] [address] [place] [phone] [id number] Navid Felipe Spouse - patient is the spouse of the insured Medical (General) History Medical History History ICD Code gerd/reflux Surgical History Surgery Date(Month/Year)
[2025-08-09 13:13] LABS: Hematocrit 34.6 % (37.0-47.0); Hemoglobin 11.2 g/dL (12.0-15.0); Mean Corpuscular HGB Conc 32.4 g/dl (32-36); Mean Corpuscular Hemoglobin 30.7 pg (26-34); Mean Corpuscular Volume 94.8 fl (80-100); Platelet Count Result 209 k/mm3 (150-375); Red Blood Count 3.65 M/mm3 (4.2-5.4); White Blood Count 5.6 K/mm3 (4.5-10.0)
[2025-08-09 13:16] LABS: Iron 35 ug/dL (37-170)
[2025-08-09 13:19] LABS: Alanine Aminotransferase 16 U/L (6-35); Albumin Level 4.3 g/dL (3.5-5.1); Alkaline Phosphatase 57 U/L (38-126); Anion Gap 7 mmol/L (4-12); Aspartate Amino Transferase 45 U/L (14-36); Bilirubin,Total 1.4 mg/dL (0.2-1.3); Blood Urea Nitrogen 12 mg/dL (7-17); Calcium 8.8 mg/dL (8.4-10.2); Carbon Dioxide 26 mmol/L (22-30); Chloride 104 mmol/L (98-107); Cholesterol 148 mg/dL (0-200); Estimated Glomerular Filt Rate > 60; Glucose 78 mg/dL (65-110); HDL Direct 62 mg/dL; Potassium 4.6 mmol/L (3.4-5.0); Sodium 137 mmol/L (137-145); Total Protein 7.3 g/dL (6.3-8.2); Triglycerides 55 mg/dL (<150)
[2025-08-09 13:46] LABS: Percent Iron Saturation 9 % (20-50)
[2025-08-09 13:55] LABS: Thyroid Stimulating Hormone 1.300 uIU/mL (0.465-4.680)
[2025-08-09 14:18] LABS: Ferritin 7.28 ng/mL (6.24-137)
== END 2025-08-09 08:38 | disposition home or self-care (01) ==
LOC: ANHGOSHLAB 08:38
PROVIDERS: PCP Family Medicine; Visit Provider Family Medicine
DX: Z00.00 Encounter for general adult medical examination without abnormal findings (principal); Z13.220 Encounter for screening for lipoid disorders; E78.5 Hyperlipidemia, unspecified; D64.9 Anemia, unspecified; E55.9 Vitamin D deficiency, unspecified; Z79.899 Other long term (current) drug therapy
CPT/HCPCS: 36415; 80053; 80061; 82248; 82306; 82728; 83540; 83550; 84443; 85027

== ENCOUNTER 2025-11-02 08:39 | Outpatient (CLI) | payer BC, SELFPAY ==
--- OUTSIDE RECORDS SUMMARY | 2025-11-02 09:06 | XMS_ITS | Clinical Summary ---
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 MANAGER Gender Identity Not on file Sexual Orientation Not on file Last Filed Vital Signs Vital Sign Reading Time Taken Comments Blood Pressure 131/88 2021 8:30 AM EFFICIENCY MANAGER Pulse 102 2021 8:30 AM EFFICIENCY MANAGER Temperature - - Respiratory Rate - - Oxygen Saturation - - Inhaled Oxygen Concentration - - Weight 63.5 kg (140 lb) 2021 8:30 AM EFFICIENCY MANAGER Height 167.6 cm (5' 6) 2021 8:30 AM EFFICIENCY MANAGER Body Mass Index 22.6 2021 8:30 AM EFFICIENCY MANAGER Plan of Treatment Not on file Insurance [employer] [place] Care Teams Exhaust Emissions Automotive Technician Relationship Specialty Start Date End Date Avinash Cruz MD [address] [place] [address] PCP - General 01/18/21 Avinash Cruz MD [address] [place] [address] Family Medicine 01/18/21
[2025-11-02 18:54] LABS: Iron 111 ug/dL (37-170)
[2025-11-02 18:56] LABS: Hematocrit 39.9 % (37.0-47.0); Hemoglobin 13.1 g/dL (12.0-15.0); Mean Corpuscular HGB Conc 32.8 g/dl (32-36); Mean Corpuscular Hemoglobin 31.0 pg (26-34); Mean Corpuscular Volume 94.3 fl (80-100); Platelet Count Result 198 k/mm3 (150-375); Red Blood Count 4.23 M/mm3 (4.2-5.4); White Blood Count 5.9 K/mm3 (4.5-10.0)
[2025-11-02 19:18] LABS: Percent Iron Saturation 36 % (20-50)
[2025-11-02 19:40] LABS: Ferritin 43.00 ng/mL (6.24-137)
== END 2025-11-02 08:40 | disposition home or self-care (01) ==
LOC: ANHGOSHLAB 08:39
PROVIDERS: PCP Family Medicine; Visit Provider Family Medicine
DX: D64.9 Anemia, unspecified (principal)
CPT/HCPCS: 36415; 82728; 83540; 83550; 85027